=== PATIENT | male | born 1985 | race Caucasian/White ===

== ENCOUNTER 2021-07-20 20:57 | Emergency (ER) | payer OTHER ==
[~2021-07-20] VITALS: Ht 188 cm; Wt 131.8 kg
[2021-07-20] MEDS ORDERED: HYDR25TA2 PO (21:22)
[2021-07-20] MEDS ORDERED: LISI-892 PO (21:22)
[2021-07-20] MEDS ORDERED: LORazepam 1 MG TABLET PO ONE ×2 (22:30→23:30)
[2021-07-20] MEDS ORDERED: HALOPERIDOL 5 MG TABLET PO ONE (23:15)
[2021-07-20] MEDS ORDERED: DiphenhydrAMINE HCL 25 MG CAPSULE PO ONE ×2 (23:15→23:30)
[2021-07-21 01:23] VITALS: BP 137/85
== END 2021-07-21 02:23 | disposition home or self-care (01) ==
LOC: EMS 20:58
DX: R00.0 Tachycardia, unspecified (principal); F14.10 Cocaine abuse, uncomplicated; I10 Essential (primary) hypertension
CPT/HCPCS: 99283; 99284